=== PATIENT | female | born 1965 | race African-American/Black ===

== ENCOUNTER 2017-12-08 18:40 | Emergency (ER) | payer OTHER ==
[2017-12-08 18:52] VITALS: TEMP 99; BMI 30.5
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
[2017-12-08] MEDS ORDERED: traMADol HCL 50 MG TABLET PO ONE (19:31)
[2017-12-08] MEDS ORDERED: traMADol HCL 50 MG TABLET ONE (19:52)
[2017-12-08 22:44] VITALS: BP 142/74; PULSE 68
== END 2017-12-08 23:14 | disposition home or self-care (01) ==
LOC: JER 18:40
DX: M54.5 Low back pain (principal); M54.6 Pain in thoracic spine; M25.521 Pain in right elbow; W10.8XXA Fall (on) (from) other stairs and steps, initial encounter; Y93.89 Activity, other specified; Y92.038 Other place in apartment as the place of occurrence of the external cause
CPT/HCPCS: 70450-TC; 71101-TC-FY; 71250-TC; 72070-TC-FY; 72100-TC-FY; 72125-TC; 73070-TC-RT-FY; 99283-25

== ENCOUNTER 2019-03-04 12:49 | Emergency (ER) | payer OTHER ==
[2019-03-04 13:02] VITALS: BP 131/64; PULSE 90; TEMP 98.1; BMI 29.6
--- NOTE | 2019-03-04 13:12 | PDOC ---
History of Present Illness - General Chief Complaint: Pain, Acute Stated Complaint: LOWER RT SIDED PAIN Time Seen by Provider: 03/04/19 13:11 History Source: Patient - History of Present Illness Timing/Duration: reports: constant Quality: reports: moderate Pain Radiation: reports: flank Past History - Past Medical History Allergies/Adverse Reactions: Allergies Allergy/AdvReac Type Severity Reaction Status Date / Time No Known Allergies Allergy Verified 03/04/19 12:57 Home Medications: Ambulatory Orders Aspirin [ASA -] 81 mg PO DAILY 12/08/17 Tramadol HCl [Ultram] 50 mg PO TID PRN #14 tablet MDD 3 12/08/17 Cardiac Disorders: Yes (CARDIOMYOPATHY) COPD: No Diabetes: Yes HTN: Yes - Surgical History Abdominal Surgery: Yes Appendectomy: Yes Cholecystectomy: Yes - Immunization History Immunization Up to Date: Yes - Suicide/Smoking/Psychosocial Hx Smoking Status: Yes Smoking History: Current every day smoker Have you smoked in the past 12 months: Yes Number of Cigarettes Smoked Daily: 10 Information on smoking cessation initiated: Yes Hx Alcohol Use: No Drug/Substance Use Hx: No Review of Systems - Review of Systems Constitutional: No: Chills, Fever ABD/GI: No: Blood Streaked Bowels, Constipated, Diarrhea, Nausea, Rectal Bleeding, Vomiting, Tarry Stools : Yes: Flank Pain. No: Burning, Dysuria, Discharge, Hematuria *Physical Exam - Vital Signs Last Vital Signs Temp Pulse Resp BP Pulse Ox 98.1 F 90 18 131/64 98 03/04/19 12:59 03/04/19 12:59 03/04/19 12:59 03/04/19 12:59 03/04/19 12:59 - Physical Exam General Appearance: Yes: Appropriately Dressed. No: Apparent Distress HEENT: positive: Normal Voice Neck: positive: Supple Respiratory/Chest: negative: Respiratory Distress Gastrointestinal/Abdominal: positive: Soft. negative: Tender Musculoskeletal: negative: CVA Tenderness Integumentary: positive: Dry, Warm Neurologic: positive: Fully Oriented, Alert, Normal Mood/Affect ED Treatment Course - LABORATORY CBC & Chemistry Diagram: 03/04/19 13:35 03/04/19 13:35 Medical Decision Making - Medical Decision Making 03/04/19 13:11 54 yo F, h/o cardiomyopathy, smoker, post menopausal, ?DM (on januvia but does not take as pt reports she is not convinced she has DM), s/p appendectomy remotely, here w/ R sided abd pain. For the past 2 weeks, pt states she has had right lower abdominal pain radiating to her back, sharp, mostly constant, 5- 6 out of 10. States pain sometimes switches to her left lower abdomen. No dysuria, freq or hematuria but states she thought she had a UTI so bought "some antibiotics at the store" and states she took multiple doses w/ no improvement in sxs. No change in bowel movements, nausea, vomiting, fever or chills. No vag discharge and reports not being sexually active x years. No h/o similar pain. No recent trauma See exam R flank pain x 2 week No or GI sxs No h/o renal stone S/p appy remotely No trauma Exam normal w/ benign abd and no CVAT -labs/ua -? renal US 03/04/19 14:41 Labs and US negative here. Pt stable for discharge to follow up with PMD if pain persists *DC/Admit/Observation/Transfer Diagnosis at time of Disposition: Abdominal pain Qualifiers: Abdominal location: unspecified location Qualified Code(s): R10.9 - Unspecified abdominal pain - Discharge Dispostion Disposition: HOME Condition at time of disposition: Good - Referrals Referrals: Bruno Canseco [Primary Care Provider] - - Patient Instructions Printed Discharge Instructions: DI for Abdominal Pain-Adult Additional Instructions: The cause of your abdominal pain is unclear at this time as your labs and ultrasound were normal If pain continues, please follow up with your PMD - Post Discharge Activity
[2019-03-04] MEDS ORDERED: ACETAMINOPHEN 325 MG TABLET (FP) PO ONE (13:19)
[2019-03-04] MEDS ORDERED: ACETAMINOPHEN 325 MG TABLET (FP) ONE (13:30)
[2019-03-04 14:00] LABS: BASO % 0.5 % (0-2.0); EOS % 1.5 % (0-4.5); HEMATOCRIT 43.7 % (32.4-45.2); HEMOGLOBIN 14.7 GM/dL (10.7-15.3); LYMPH % 36.8 % (8-40); MCH 28.5 pg (25.7-33.7); MCHC 33.6 g/dl (32.0-36.0); MEAN CELL VOLUME 84.9 fl (80-96); MEAN PLT VOLUME 9.3 fl (7.5-11.1); MONO % 6.7 % (3.8-10.2); NEUT % 54.5 % (42.8-82.8); PLATELET COUNT 244 K/MM3 (134-434); RBC 5.15 M/mm3 (3.60-5.2); WHITE BLOOD COUNT 9.1 K/mm3 (4.0-10.0)
[2019-03-04 14:02] LABS: URINE APPEARANCE CLEAR; URINE BILIRUBIN NEGATIVE (NEGATIVE); URINE COLOR YELLOW; URINE GLUCOSE (UA) NEGATIVE (NEGATIVE); URINE KETONE TRACE (NEGATIVE); URINE LEUK ESTERASE NEGATIVE (NEGATIVE); URINE NITRITE NEGATIVE (NEGATIVE); URINE PROTEIN NEGATIVE (NEGATIVE)
[2019-03-04 14:27] LABS: ALBUMIN 4.1 g/dl (3.4-5.0); ALK PHOS 72 U/L (45-117); ANION GAP 8 MMOL/L (8-16); BILIRUBIN,TOTAL 0.3 mg/dL (0.2-1); BLOOD UREA NITROGEN 11 mg/dL (7-18); CALCIUM 9.2 mg/dL (8.5-10.1); CHLORIDE 110 mmol/L (98-107); CO2 23 mmol/L (21-32); CREATININE 0.7 mg/dL (0.55-1.3); GLUCOSE,RANDOM 91 mg/dL (74-106); POTASSIUM 4.2 mmol/L (3.5-5.1); SGOT/AST 10 U/L (15-37); SGPT/ALT 18 U/L (13-61); SODIUM 141 mmol/L (136-145)
== END 2019-03-04 15:51 | disposition home or self-care (01) ==
LOC: JER 12:49
DX: R10.9 Unspecified abdominal pain (principal); I11.9 Hypertensive heart disease without heart failure; I43 Cardiomyopathy in diseases classified elsewhere; F17.210 Nicotine dependence, cigarettes, uncomplicated; E11.9 Type 2 diabetes mellitus without complications; Z79.84 Long term (current) use of oral hypoglycemic drugs
CPT/HCPCS: 36415; 76775-TC; 80053; 81003; 85025; 99281-25